=== PATIENT | female | born 1960 | race Caucasian/White ===

== ENCOUNTER 2017-11-04 14:26 | Emergency (ER) | payer OTHER ==
[~2017-11-04] VITALS: Ht 170.2 cm; Wt 63.5 kg
--- NOTE | 2017-11-04 15:50 | RADIOLOGY REPORT ---
EXAMINATION: XR RIBS, RIGHT XR CHEST CLINICAL INFORMATION: 57-year-old female with tach chest pain. COMPARISON: Chest done on 12/22/2016. TECHNIQUE: 3 views of the right ribs were obtained. 2 views of the chest were obtained. FINDINGS: Biapical pleuroparenchymal presumed scar related changes are noted, unchanged since 12/22/2016. The remainder of the lung mendoza are clear, unchanged. The cardiomediastinal silhouette is within normal limit. There is no pleural effusion or pneumothorax present. The visualized upper abdomen is unremarkable. Specifically, there is no displaced right lower hemithoracic rib fracture present. IMPRESSION: No acute cardiopulmonary disease. Specifically, no radiographic evidence of any displaced right hemithoracic rib fracture or hemopneumothorax present.
[2017-11-04 16:25] VITALS: BP 111/79
[2017-11-04] MEDS ORDERED: NAPROSYN500 M1 PO (16:26)
--- NOTE | 2017-11-17 14:13 | ED CARDIAC/CP/PALPITATIONS ---
History of Present Illness General Chief Complaint: General Adult Stated Complaint: RIGHT SIDED RIB PAIN, X 1 DAY Source: patient Exam Limitations: no limitations Vital Signs & Intake/Output Vital Signs & Intake/Output reviewed Allergies Coded Allergies: NO KNOWN ALLERGIES (08/12/11) Reconcile Medications Naproxen (Naprosyn) 500 MG TABLET 1 TAB PO BID chest wall pain Triage Note: PT STATES SHE IS HAVING PAIN IN HER RIGHT RIBS PT DOES NOT REMEMER INJURING HERSELF. PT STATSE THIS HAPPEND TO HER ABOUT A MONTH AGO BUT ON THE OTHER SIDE BUT SHE DID NOT GET IT CHECKED. Triage Nurses Notes Reviewed? yes HPI: 57-year-old female presents with right-sided chest pain worse with deep inspiration and movement over the past 2-3 days and similar to an episode 1 month ago which resolved on its own. Patient denies any dyspnea on exertion, hemoptysis, anginal type chest pain, rash, trauma, fever, hemoptysis, leg pain or swelling. Past History Travel History Traveled to [place] past 21 day No Medical History Any Pertinent Medical History? see below for history Psychiatric: depression Surgical History Surgical History: non-contributory Psychosocial History What is your primary language Peruvian Tobacco Use: Current Daily Use Daily Tobacco Use Amount/Type: =< 4 Cigarettes daily ETOH Use: occasional use Illicit Drug Use: denies illicit drug use Family History Hx Contributory? Yes (no FH of ACS) Review of Systems Review of Systems Constitutional: Reports: see HPI. Denies: no symptoms, chills, diaphoresis, fever, malaise, weakness, unexplained weight loss. All Other Systems: Reviewed and Negative Physical Exam Physical Exam General Appearance: well developed/nourished, no apparent distress, alert, awake , anxious Head: atraumatic, normal appearance Eyes: Bilateral: normal appearance, PERRL, EOMI. Ears, Nose, Throat: normal pharynx Neck: normal inspection, supple, full range of motion Respiratory: normal breath sounds, Tenderness noted over right 4th costochondral junction which fully reproduces patient's symptoms Cardiovascular: regular rate/rhythm Peripheral Pulses: 4+ carotid (R), 4+ carotid (L), 4+ brachial (R), 4+ brachial (L), 4+ radial (R), 4+ radial (L) Gastrointestinal: normal bowel sounds, soft, non-tender, no organomegaly Back: normal inspection, normal range of motion Extremities: normal inspection, normal capillary refill, normal range of motion, no edema Neurologic/Psych: no motor/sensory deficits, awake, alert, oriented x 3 Skin: intact, normal color, warm/dry Core Measures ACS in differential dx? Yes CVA/TIA Diagnosis No Sepsis Present: No Sepsis Focused Exam Completed? No Progress Differential Diagnosis: AMI, atrial fibrillation, cholecystitis, CHF/pulm edema, costochondritis, hyperkalemia, hyperventilation, myocarditis, pericarditis, pneumonia, pneumothorax Plan of Care: Labs, xray and EKG all negative Initial ED EKG: normal axis, normal intervals, normal p-waves, normal QRS complex, normal sinus rhythm, NSR Departure Departure Disposition: HOME OR SELF CARE Condition: Stable Clinical Impression Primary Impression: Costochondritis, acute Referrals: Fanny MAZARIEGOS,Evie Johns (PCP/Family) Departure Forms: Customer Survey General Discharge Information Prescriptions: Current Visit Scripts Naproxen (Naprosyn) 1 TAB PO BID #20 TAB Critical Care Note Critical Care Note Critical Care Time: 30-74 min
== END 2017-11-04 16:33 ==
LOC: ERH 14:26
DX: M94.0 Chondrocostal junction syndrome [Tietze] (principal); R07.9 Chest pain, unspecified; F32.9 Major depressive disorder, single episode, unspecified; F17.210 Nicotine dependence, cigarettes, uncomplicated; F10.10 Alcohol abuse, uncomplicated
CPT/HCPCS: 71046; 71100-RT; 93005; 93010